=== PATIENT | female | born 1950 | race Caucasian/White ===

== ENCOUNTER 2023-05-28 05:36 | Day surgery (SDC) | payer OTHER ==
[2023-05-28 08:23] VITALS: BMI 26.6
[2023-05-28] MEDS ORDERED: MIDAZOLAM HCL 2 MG/2 ML SINGLE DOSE VIAL ONE (09:49)
[2023-05-28] MEDS ORDERED: ceFAZolin SODIUM 1 GM VIAL IVPB ONE (09:55)
[2023-05-28] MEDS ORDERED: LIDOCAINE HCL 1%, 10 MG/ML (20ML VIAL) INF ONE ×2 (10:03)
[2023-05-28] MEDS ORDERED: POVIDONE-IODINE OINTMENT 10% - 28.4 GM TUBE ONE (10:37)
[2023-05-28] MEDS ORDERED: POVIDONE-IODINE OINTMENT 10% - 28.4 GM TUBE TP ONE (11:20)
[2023-05-28 12:30] VITALS: RESP 20
[2023-05-28 13:07] VITALS: BP 153/78; PULSE 56; TEMP 96.8
== END 2023-05-28 14:21 | disposition home or self-care (01) ==
LOC: JASU-SURG 05:36
PROVIDERS: ATTEND Surgery Vascular Surgery
PROC: 03170ZD Bypass Right Brachial Artery to Upper Arm Vein, Open Approach (ICD-10-PCS; principal; 2023-05-28 09:30)
DX: I12.0 Hypertensive chronic kidney disease with stage 5 chronic kidney disease or end stage renal disease (principal); N18.6 End stage renal disease
CPT/HCPCS: 36415; 84132; 94760

== ENCOUNTER 2023-12-23 20:22 | Inpatient (IN) | payer OTHER ==
[2023-12-23 22:12] LABS: BASO % 0.3 % (0-2.0); HEMATOCRIT 38.3 % (32.4-45.2); HEMOGLOBIN 12.2 GM/dL (10.7-15.3); LYMPH % 1.9 % (8-40); MCH 29.2 pg (25.7-33.7); MCHC 31.9 g/dl (32.0-36.0); MEAN CELL VOLUME 91.4 fl (80-96); MEAN PLT VOLUME 8.3 fl (7.5-11.1); MONO % 4.8 % (3.8-10.2); PLATELET COUNT 329 10^3/uL (134-434); RBC 4.18 M/mm3 (3.60-5.2); RDW 16.1 % (11.6-15.6); WHITE BLOOD COUNT 25.8 K/mm3 (4.0-10.0)
[2023-12-23 22:21] LABS: INR 1.11 (0.83-1.09); PROTHROMBIN TIME (PATIENT) 12.9 SEC (9.7-13.0)
[2023-12-23 22:23] LABS: ACTIVATED PTT 32.2 SECONDS (25.2-36.5)
[2023-12-23 22:35] LABS: CHLORIDE 99 mmol/L (98-107); POTASSIUM 5.2 mmol/L (3.5-5.1); SODIUM 134 mmol/L (136-145)
[2023-12-23 22:37] LABS: ANION GAP 12 mmol/L (4-13); BLOOD UREA NITROGEN 74.2 mg/dL (7-18); CO2 23 mmol/L (21-32); GLUCOSE,RANDOM 170 mg/dL (74-106)
[2023-12-23 22:38] LABS: ALBUMIN 2.7 g/dl (3.4-5.0); MAGNESIUM 1.9 mg/dL (1.8-2.4)
[2023-12-23 22:41] LABS: SGOT/AST 32 U/L (15-37); SGPT/ALT 33 U/L (13-61)
[2023-12-23 22:42] LABS: BILIRUBIN,TOTAL 0.5 mg/dL (0.2-1); TOT PROT 7.4 g/dl (6.4-8.2)
[2023-12-23 22:43] LABS: ALK PHOS 124 U/L (45-117)
[2023-12-23 22:45] LABS: CREATININE 9.8 mg/dL (0.55-1.3)
[2023-12-23 22:48] LABS: ANISOCYTOSIS 1+; MACROCYTOSIS 0; TEAR DROP CELLS 1+
[2023-12-24 01:35] LABS: EPI CELLS 9 /uL (0-25.1); HYALINE CASTS 0 /uL (0-3.1); PH,URINE 5.5 (5.0-8.0); URINE APPEARANCE TURBID; URINE BACTERIA >9,000 /uL (0-1359); URINE BILIRUBIN NEGATIVE (NEGATIVE); URINE COLOR YELLOW; URINE GLUCOSE (UA) NEGATIVE (NEGATIVE); URINE KETONE TRACE (NEGATIVE); URINE LEUK ESTERASE 2+ (NEGATIVE); URINE NITRITE NEGATIVE (NEGATIVE); URINE PROTEIN 4+ (NEGATIVE); URINE RBC 33 /uL (0-23.9); URINE UROBILINOGEN 0.2 mg/dL (0.2-1.0); URINE WBC 2525 /uL (0-25.8)
[2023-12-24] MEDS ORDERED: CEFTRIAXONE 1 GM/50 ML BAG ONE ×2 (01:41→09:26)
[2023-12-24] MEDS: CEFTRIAXONE 1,000 MG in DEXTROSE 5%-WATER - 50 ML IVPB ONE (01:50)
[2023-12-24] MEDS ORDERED: LIDOCAINE 4% PATCH TP ONE (04:07)
[2023-12-24] MEDS ORDERED: INSULIN (NOVOLOG) ASPART 100 UNITS/ML 10ML VIAL ONE (08:27)
[2023-12-24 08:35] LABS: HEMATOCRIT 37.3 % (32.4-45.2); HEMOGLOBIN 12.1 GM/dL (10.7-15.3); MCH 29.5 pg (25.7-33.7); MCHC 32.5 g/dl (32.0-36.0); MEAN CELL VOLUME 90.8 fl (80-96); MEAN PLT VOLUME 8.5 fl (7.5-11.1); PLATELET COUNT 308 10^3/uL (134-434); WHITE BLOOD COUNT 23.4 K/mm3 (4.0-10.0)
[2023-12-24] MEDS: INSULIN ASPART SLIDING SCALE (NOVOLOG) 1 VIAL SQ SCH (08:48)
[2023-12-24 08:53] LABS: CHLORIDE 99 mmol/L (98-107); SODIUM 136 mmol/L (136-145)
[2023-12-24 08:55] LABS: ANION GAP 15 mmol/L (4-13); CALCIUM 9.2 mg/dL (8.5-10.1); CO2 21 mmol/L (21-32); GLUCOSE,RANDOM 180 mg/dL (74-106)
[2023-12-24 08:56] LABS: BLOOD UREA NITROGEN 81.5 mg/dL (7-18); MAGNESIUM 2.1 mg/dL (1.8-2.4)
[2023-12-24 08:59] LABS: PHOSPHOROUS 6.7 mg/dL (2.5-4.9)
[2023-12-24 09:08] LABS: ANISOCYTOSIS 0; MACROCYTOSIS 0
[2023-12-24 09:10] LABS: CREATININE 10.4 mg/dL (0.55-1.3)
[2023-12-24] MEDS ORDERED: ATENOLOL 25 MG TABLET (FP) ONE (09:25)
[2023-12-24] MEDS ORDERED: FUROSEMIDE 20 MG TABLET (FP) ONE (09:25)
[2023-12-24] MEDS ORDERED: ASPIRIN COATED 81 MG TABLET.EC ONE (09:25)
[2023-12-24] MEDS ORDERED: FAMOTIDINE 10 MG TABLET ONE (09:25)
[2023-12-24] MEDS: FAMOTIDINE 10 MG TABLET PO SCH (09:49)
[2023-12-24] MEDS: CALCITRIOL 0.25 MCG CAPSULE (FP) PO SCH (09:49)
[2023-12-24] MEDS: ATENOLOL 25 MG TABLET (FP) PO SCH (09:49)
[2023-12-24] MEDS: METHYL SALICYLATE/MENTHOL OINT 30 GM TUBE TP SCH (09:49)
[2023-12-24] MEDS: FUROSEMIDE 20 MG TABLET (FP) PO SCH (09:49)
[2023-12-24] MEDS: CEFTRIAXONE 1 GM in DEXTROSE 5%-WATER - 50 ML IVPB SCH (09:49)
[2023-12-24] MEDS: ASPIRIN COATED 81 MG TABLET.EC PO SCH (09:49)
[2023-12-24] MEDS: VITAMIN B COMPLEX W/C COMBO TABLET (FP) PO SCH (09:50)
[2023-12-24] MEDS: SERTRALINE HCL 25 MG TABLET (FP) PO SCH (09:50)
[2023-12-24] MEDS ORDERED: VANCOMYCIN PREMIX 1.5 GM 1,500 MG/300 ML BAG IVPB ONE (14:22)
[2023-12-24] MEDS: VANCOMYCIN PREMIX 1.5 GM 1,500 MG/300 ML BAG IVPB ONE (19:53)
[2023-12-24] MEDS ORDERED: LIDOCAINE PATCH REMOVAL MC SCH (22:00)
[2023-12-24] MEDS: ATORVASTATIN CA 40 MG TABLET (FP) PO SCH (22:45)
[2023-12-24] MEDS: GABAPENTIN 100 MG CAPSULE PO SCH (22:45)
[2023-12-24] MEDS: MELATONIN 1 MG TABLET PO SCH (22:45)
[2023-12-25 08:51] LABS: HEMATOCRIT 34.5 % (32.4-45.2); HEMOGLOBIN 11.1 GM/dL (10.7-15.3); MCH 29.2 pg (25.7-33.7); MCHC 32.2 g/dl (32.0-36.0); MEAN CELL VOLUME 90.6 fl (80-96); MEAN PLT VOLUME 8.7 fl (7.5-11.1); PLATELET COUNT 355 10^3/uL (134-434); WHITE BLOOD COUNT 22.5 K/mm3 (4.0-10.0)
[2023-12-25 09:01] LABS: CHLORIDE 100 mmol/L (98-107); SODIUM 135 mmol/L (136-145)
[2023-12-25 09:05] LABS: ALBUMIN 2.3 g/dl (3.4-5.0); ANION GAP 15 mmol/L (4-13); CALCIUM 8.7 mg/dL (8.5-10.1); CO2 21 mmol/L (21-32); GLUCOSE,RANDOM 137 mg/dL (74-106)
[2023-12-25 09:06] LABS: BLOOD UREA NITROGEN 90.3 mg/dL (7-18)
[2023-12-25 09:08] LABS: SGPT/ALT 28 U/L (13-61)
[2023-12-25 09:09] LABS: SGOT/AST 23 U/L (15-37)
[2023-12-25 09:10] LABS: BILIRUBIN,TOTAL 0.5 mg/dL (0.2-1); TOT PROT 6.5 g/dl (6.4-8.2)
[2023-12-25 09:11] LABS: ALK PHOS 110 U/L (45-117)
[2023-12-25 09:14] LABS: CREATININE 11.2 mg/dL (0.55-1.3)
[2023-12-25 09:48] LABS: ANISOCYTOSIS 0; MACROCYTOSIS 0
[2023-12-25] MEDS: ACETAMINOPHEN 325 MG TABLET (FP) PO PRN (14:53)
[2023-12-25] MEDS: LORazepam 1 MG TABLET PO SCH (15:52)
[2023-12-25] MEDS ORDERED: SODIUM CHLORIDE 250 ML IV PRN (16:21)
[2023-12-26 08:31] LABS: BASO % 0.4 % (0-2.0); EOS % 0.3 % (0-4.5); HEMATOCRIT 36.3 % (32.4-45.2); HEMOGLOBIN 11.7 GM/dL (10.7-15.3); LYMPH % 5.4 % (8-40); MCH 29.2 pg (25.7-33.7); MCHC 32.1 g/dl (32.0-36.0); MEAN CELL VOLUME 90.8 fl (80-96); MEAN PLT VOLUME 8.6 fl (7.5-11.1); MONO % 6.6 % (3.8-10.2); NEUT % 87.3 % (42.8-82.8); PLATELET COUNT 365 10^3/uL (134-434); RDW 16.2 % (11.6-15.6); WHITE BLOOD COUNT 17.7 K/mm3 (4.0-10.0)
[2023-12-26 08:50] LABS: CHLORIDE 99 mmol/L (98-107); POTASSIUM 4.3 mmol/L (3.5-5.1); SODIUM 136 mmol/L (136-145)
[2023-12-26 08:52] LABS: CALCIUM 8.5 mg/dL (8.5-10.1)
[2023-12-26 08:53] LABS: ALBUMIN 2.3 g/dl (3.4-5.0); ANION GAP 12 mmol/L (4-13); CO2 25 mmol/L (21-32); GLUCOSE,RANDOM 176 mg/dL (74-106)
[2023-12-26 08:56] LABS: SGPT/ALT 30 U/L (13-61)
[2023-12-26 08:57] LABS: SGOT/AST 25 U/L (15-37)
[2023-12-26 08:58] LABS: ALK PHOS 109 U/L (45-117); BILIRUBIN,TOTAL 0.6 mg/dL (0.2-1); TOT PROT 6.6 g/dl (6.4-8.2)
[2023-12-26 09:00] LABS: BLOOD UREA NITROGEN 54.5 mg/dL (7-18)
[2023-12-26] MEDS ORDERED: MEROPENEM 1 GM in DEXTROSE 5%-WATER 100 ML IVPB SCH (12:45)
[2023-12-26] MEDS: MEROPENEM 1 GM in DEXTROSE 5%-WATER 100 ML IVPB SCH (14:29)
[2023-12-26] MEDS ORDERED: INSULIN (NOVOLOG) ASPART 100 UNITS/ML 10ML VIAL ONE (21:20)
[2023-12-27 10:16] LABS: BASO % 0.6 % (0-2.0); EOS % 0.5 % (0-4.5); HEMATOCRIT 35.6 % (32.4-45.2); HEMOGLOBIN 11.7 GM/dL (10.7-15.3); LYMPH % 6.6 % (8-40); MCH 29.7 pg (25.7-33.7); MCHC 32.8 g/dl (32.0-36.0); MEAN CELL VOLUME 90.5 fl (80-96); MEAN PLT VOLUME 8.4 fl (7.5-11.1); MONO % 7.1 % (3.8-10.2); NEUT % 85.2 % (42.8-82.8); PLATELET COUNT 379 10^3/uL (134-434); RBC 3.94 M/mm3 (3.60-5.2); RDW 16.5 % (11.6-15.6); WHITE BLOOD COUNT 15.3 K/mm3 (4.0-10.0)
[2023-12-27 10:35] LABS: CHLORIDE 97 mmol/L (98-107); POTASSIUM 4.5 mmol/L (3.5-5.1); SODIUM 135 mmol/L (136-145)
[2023-12-27] MEDS: LIDOCAINE HCL 1%, 10 MG/ML (20ML VIAL) SQ ONE (10:37)
[2023-12-27 10:40] LABS: CALCIUM 9.1 mg/dL (8.5-10.1)
[2023-12-27 10:41] LABS: ALBUMIN 2.4 g/dl (3.4-5.0); ANION GAP 13 mmol/L (4-13); BLOOD UREA NITROGEN 67.7 mg/dL (7-18); CO2 26 mmol/L (21-32); GLUCOSE,RANDOM 146 mg/dL (74-106)
[2023-12-27 10:44] LABS: SGOT/AST 34 U/L (15-37); SGPT/ALT 40 U/L (13-61)
[2023-12-27 10:46] LABS: BILIRUBIN,TOTAL 0.8 mg/dL (0.2-1); TOT PROT 6.9 g/dl (6.4-8.2)
[2023-12-27 10:47] LABS: ALK PHOS 107 U/L (45-117)
[2023-12-27 10:49] LABS: CREATININE 9.4 mg/dL (0.55-1.3)
[2023-12-29] MEDS ORDERED: INSULIN (NOVOLOG) ASPART 100 UNITS/ML 10ML VIAL ONE (11:54)
[2023-12-29] MEDS: VANCOMYCIN 500 MG in DEXTROSE 5%-WATER 100 ML IVPB ONE (12:04)
[2023-12-29] MEDS ORDERED: SODIUM CHLORIDE 250 ML IV PRN (17:02)
[2023-12-30 10:13] LABS: BASO % 1.3 % (0-2.0); EOS % 3.5 % (0-4.5); HEMATOCRIT 33.1 % (32.4-45.2); HEMOGLOBIN 10.5 GM/dL (10.7-15.3); LYMPH % 11.1 % (8-40); MCH 28.9 pg (25.7-33.7); MCHC 31.8 g/dl (32.0-36.0); MEAN CELL VOLUME 90.8 fl (80-96); MEAN PLT VOLUME 8.3 fl (7.5-11.1); MONO % 7.4 % (3.8-10.2); NEUT % 76.7 % (42.8-82.8); PLATELET COUNT 380 10^3/uL (134-434); RBC 3.65 M/mm3 (3.60-5.2); RDW 16.3 % (11.6-15.6); WHITE BLOOD COUNT 11.6 K/mm3 (4.0-10.0)
[2023-12-30 10:38] LABS: POTASSIUM 3.7 mmol/L (3.5-5.1)
[2023-12-30 10:42] LABS: ALBUMIN 2.2 g/dl (3.4-5.0); BLOOD UREA NITROGEN 56.9 mg/dL (7-18); CALCIUM 8.1 mg/dL (8.5-10.1)
[2023-12-30 10:45] LABS: CREATININE 7.1 mg/dL (0.55-1.3)
[2023-12-30 10:46] LABS: TOT PROT 6.4 g/dl (6.4-8.2)
[2023-12-30 10:47] LABS: BILIRUBIN,TOTAL 0.5 mg/dL (0.2-1)
[2023-12-30] MEDS: ALBUMIN HUMAN 25% 12.5 GM/50 ML VIAL IV SCH (11:00)
[2023-12-31] MEDS ORDERED: SODIUM CHLORIDE 250 ML IV PRN (12:00)
[2023-12-31] MEDS: LORazepam 1 MG TABLET PO SCH (13:25)
[2023-12-31] MEDS: EPOETIN ALFA-EPBX 4,000 UNIT/ML VIAL SQ ONE (15:01)
[2023-12-31] MEDS: VANCOMYCIN/WATER FOR INJ (PEG) 1,000 MG/200 ML BAG IVPB SCH (19:24)
[2024-01-01] MEDS ORDERED: SODIUM CHLORIDE 250 ML IV PRN (08:03)
[2024-01-01] MEDS: EPOETIN ALFA-EPBX 2,000 UNIT/ML VIAL IVPUSH ONE (15:15)
[2024-01-02 10:17] LABS: BASO % 1.4 % (0-2.0); EOS % 3.3 % (0-4.5); HEMATOCRIT 31.1 % (32.4-45.2); HEMOGLOBIN 9.7 GM/dL (10.7-15.3); LYMPH % 13.3 % (8-40); MCH 28.7 pg (25.7-33.7); MCHC 31.2 g/dl (32.0-36.0); MEAN CELL VOLUME 91.9 fl (80-96); MEAN PLT VOLUME 8.5 fl (7.5-11.1); MONO % 9.8 % (3.8-10.2); NEUT % 72.2 % (42.8-82.8); PLATELET COUNT 305 10^3/uL (134-434); RBC 3.39 M/mm3 (3.60-5.2); RDW 15.8 % (11.6-15.6); WHITE BLOOD COUNT 9.5 K/mm3 (4.0-10.0)
[2024-01-02 10:45] LABS: POTASSIUM 4.7 mmol/L (3.5-5.1)
[2024-01-02 10:47] LABS: CALCIUM 9.2 mg/dL (8.5-10.1)
[2024-01-02 10:48] LABS: ALBUMIN 2.2 g/dl (3.4-5.0); BLOOD UREA NITROGEN 37.4 mg/dL (7-18)
[2024-01-02 10:52] LABS: BILIRUBIN,TOTAL 0.6 mg/dL (0.2-1)
[2024-01-02 10:53] LABS: TOT PROT 6.6 g/dl (6.4-8.2)
[2024-01-02] MEDS ORDERED: INSULIN (NOVOLOG) ASPART 100 UNITS/ML 10ML VIAL ONE (21:15)
[2024-01-02] MEDS: MEROPENEM 1 GM in DEXTROSE 5%-WATER 100 ML IVPB SCH (21:34)
[2024-01-03] MEDS: VANCOMYCIN/WATER FOR INJ (PEG) 1,000 MG/200 ML BAG IVPB ONE (19:00)
[2024-01-03] MEDS ORDERED: INSULIN (NOVOLOG) ASPART 100 UNITS/ML 10ML VIAL ONE (21:33)
[2024-01-04] MEDS ORDERED: EPOETIN ALFA-EPBX 3,000 UNIT/ML VIAL IVPUSH ONE (08:19)
[2024-01-04] MEDS ORDERED: SODIUM CHLORIDE 250 ML IV PRN (08:19)
[2024-01-04] MEDS ORDERED: HEPARIN NA (PORCINE) 5,000 UNITS/ML 1ML VIAL ONE ×2 (14:50→15:54)
[2024-01-04] MEDS ORDERED: LIDOCAINE HCL 1%, 10 MG/ML (20ML VIAL) ONE ×2 (14:50→15:54)
[2024-01-05] MEDS: VANCOMYCIN 1,000 MG in DEXTROSE 5%-WATER - 250 ML IVPB ONE (08:42)
[2024-01-05] MEDS ORDERED: SODIUM CHLORIDE 250 ML IV PRN (16:18)
[2024-01-06 11:31] VITALS: BMI 21.9
[2024-01-06 11:37] LABS: INR 1.12 (0.83-1.09)
[2024-01-06 11:40] LABS: ACTIVATED PTT 40.9 SECONDS (25.2-36.5)
[2024-01-06] MEDS ORDERED: LIDOCAINE HCL 1%, 10 MG/ML (20ML VIAL) ONE (12:05)
[2024-01-06] MEDS ORDERED: HEPARIN NA (PORCINE) 5,000 UNITS/ML 1ML VIAL ONE (12:05)
[2024-01-06] MEDS ORDERED: INSULIN (NOVOLOG) ASPART 100 UNITS/ML 10ML VIAL ONE (21:13)
[2024-01-07] MEDS ORDERED: LIDOCAINE HCL 1%, 10 MG/ML (20ML VIAL) ONE (07:07)
[2024-01-07] MEDS ORDERED: HEPARIN NA (PORCINE) 5,000 UNITS/ML 1ML VIAL ONE (07:08)
[2024-01-07] MEDS ORDERED: PROPOFOL 20 ML ONE (07:29)
[2024-01-07] MEDS ORDERED: MIDAZOLAM HCL 2 MG/2 ML SINGLE DOSE VIAL ONE (07:54)
[2024-01-07] MEDS: ceFAZolin SODIUM 1 GM VIAL IVPB ONE (08:00)
[2024-01-07] MEDS: HEPARIN NA (PORCINE) 5,000 UNITS/ML 1ML VIAL SQ ONE (08:03)
[2024-01-07] MEDS: LIDOCAINE 1% P/F 10 MG/ML VIAL INF ONE ×2 (08:09)
[2024-01-07] MEDS ORDERED: ONDANSETRON 4 MG/2 ML VIAL IVPUSH PRN (08:30)
[2024-01-07] MEDS ORDERED: ACETAMINOPHEN 325 MG TABLET (FP) PO PRN (08:46)
[2024-01-07] MEDS: EPOETIN ALFA-EPBX 3,000 UNIT/ML VIAL SQ ONE ×2 (10:21→15:28)
[2024-01-07] MEDS: SERTRALINE HCL 25 MG TABLET (FP) PO SCH (10:25)
[2024-01-07] MEDS: CALCITRIOL 0.25 MCG CAPSULE (FP) PO SCH (10:25)
[2024-01-07] MEDS: VITAMIN B COMPLEX W/C COMBO TABLET (FP) PO SCH (10:25)
[2024-01-07] MEDS: FAMOTIDINE 10 MG TABLET PO SCH (10:25)
[2024-01-07] MEDS: FUROSEMIDE 20 MG TABLET (FP) PO SCH (10:25)
[2024-01-07] MEDS: ASPIRIN COATED 81 MG TABLET.EC PO SCH (10:25)
[2024-01-07] MEDS: ATENOLOL 25 MG TABLET (FP) PO SCH (10:25)
[2024-01-07] MEDS: LORazepam 1 MG TABLET PO SCH (10:31)
[2024-01-07] MEDS: LACTATED RINGERS SOLUTION 1,000 ML IV SCH (10:32)
[2024-01-07] MEDS: METHYL SALICYLATE/MENTHOL OINT 30 GM TUBE TP SCH (10:34)
[2024-01-07] MEDS: INSULIN ASPART SLIDING SCALE (NOVOLOG) 1 VIAL SQ SCH (10:58)
[2024-01-07] MEDS ORDERED: SODIUM CHLORIDE 250 ML IV PRN (13:32)
[2024-01-07] MEDS: ERTAPENEM SODIUM 1 GM in SODIUM CHLORIDE 50 ML IVPB ONE (18:29)
[2024-01-07] MEDS: MELATONIN 1 MG TABLET PO SCH (21:48)
[2024-01-07] MEDS: ATORVASTATIN CA 40 MG TABLET (FP) PO SCH (21:48)
[2024-01-07] MEDS: GABAPENTIN 100 MG CAPSULE PO SCH (21:48)
[2024-01-09 08:23] LABS: BASO % 3.2 % (0-2.0); EOS % 7.8 % (0-4.5); HEMATOCRIT 27.2 % (32.4-45.2); HEMOGLOBIN 8.7 GM/dL (10.7-15.3); LYMPH % 24.1 % (8-40); MCH 28.9 pg (25.7-33.7); MCHC 31.9 g/dl (32.0-36.0); MEAN CELL VOLUME 90.7 fl (80-96); MONO % 11.9 % (3.8-10.2); PLATELET COUNT 330 10^3/uL (134-434); RDW 16.4 % (11.6-15.6); WHITE BLOOD COUNT 5.9 K/mm3 (4.0-10.0)
[2024-01-09 14:53] VITALS: RESP 18
[2024-01-09] MEDS ORDERED: INSULIN (NOVOLOG) ASPART 100 UNITS/ML 10ML VIAL ONE (18:19)
[2024-01-10] MEDS ORDERED: EPOETIN ALFA-EPBX 3,000 UNIT/ML VIAL IVPUSH ONE (06:00)
[2024-01-10 12:43] VITALS: BP 136/79; PULSE 60; TEMP 98.2
== END 2024-01-10 17:26 | DRG 314 ==
LOC: JER 20:22 → JERBED 12-24 03:10 → OBSVTOIN 12-24 13:56 → JERBED 12-24 15:05 → J7W 12-24 15:10
PROVIDERS: ADMIT Internal Medicine; ATTEND Family Medicine
PROC: 5A1D70Z Performance of Urinary Filtration, Intermittent, Less than 6 Hours Per Day (ICD-10-PCS; 2023-12-25)
PROC: 0WP8XYZ Removal of Other Device from Chest Wall, External Approach (ICD-10-PCS; principal; 2023-12-27)
PROC: 06HM33Z Insertion of Infusion Device into Right Femoral Vein, Percutaneous Approach (ICD-10-PCS; 2023-12-29)
PROC: B54BZZA Ultrasonography of Right Lower Extremity Veins, Guidance (ICD-10-PCS; 2023-12-29)
PROC: 5A1D70Z Performance of Urinary Filtration, Intermittent, Less than 6 Hours Per Day (ICD-10-PCS; 2023-12-30)
PROC: 5A1D70Z Performance of Urinary Filtration, Intermittent, Less than 6 Hours Per Day (ICD-10-PCS; 2023-12-31)
PROC: 5A1D70Z Performance of Urinary Filtration, Intermittent, Less than 6 Hours Per Day (ICD-10-PCS; 2024-01-01)
PROC: 05HM33Z Insertion of Infusion Device into Right Internal Jugular Vein, Percutaneous Approach (ICD-10-PCS; 2024-01-07)
PROC: B543ZZA Ultrasonography of Right Jugular Veins, Guidance (ICD-10-PCS; 2024-01-07)
DX: T80.211A Bloodstream infection due to central venous catheter, initial encounter (principal); A41.02 Sepsis due to Methicillin resistant Staphylococcus aureus; N18.6 End stage renal disease; I12.0 Hypertensive chronic kidney disease with stage 5 chronic kidney disease or end stage renal disease; N39.0 Urinary tract infection, site not specified; I31.39 Other pericardial effusion (noninflammatory); E11.22 Type 2 diabetes mellitus with diabetic chronic kidney disease; F41.8 Other specified anxiety disorders; E11.51 Type 2 diabetes mellitus with diabetic peripheral angiopathy without gangrene; F03.90 Unspecified dementia, unspecified severity, without behavioral disturbance, psychotic disturbance, mood disturbance, and anxiety; D72.829 Elevated white blood cell count, unspecified; Y83.8 Other surgical procedures as the cause of abnormal reaction of the patient, or of later complication, without mention of misadventure at the time of the procedure; B95.62 Methicillin resistant Staphylococcus aureus infection as the cause of diseases classified elsewhere; B96.20 Unspecified Escherichia coli [E. coli] as the cause of diseases classified elsewhere; Z99.2 Dependence on renal dialysis
CPT/HCPCS: 36415; 70450-TC; 71045-TC-FY; 73030-TC-LT-FY; 73030-TC-RT-FY; 76000-TC-FY; 80048; 80053; 81003; 82962; 83605; 83735; 84100; 84484; 85025; 85610; 85730; 86704; 86803; 86850; 86900; 86901; 87040; 87070; 87077; 87086; 87186; 87340; 87517; 93005; 93010; 93306-TC; 93990-TC; 94760; 99285-25; C1750; G0378; G0480; J1644; P9047; Q5106

== ENCOUNTER 2024-01-28 23:13 | Emergency (ER) | payer OTHER ==
[2024-01-28 23:32] VITALS: BMI 24.0
[2024-01-29 01:16] LABS: BASO % 1.5 % (0-2.0); EOS % 4.7 % (0-4.5); HEMATOCRIT 30.4 % (32.4-45.2); LYMPH % 19.9 % (8-40); MCH 29.5 pg (25.7-33.7); MEAN CELL VOLUME 89.2 fl (80-96); MEAN PLT VOLUME 8.2 fl (7.5-11.1); MONO % 7.5 % (3.8-10.2); NEUT % 66.4 % (42.8-82.8); PLATELET COUNT 264 10^3/uL (134-434); RBC 3.41 M/mm3 (3.60-5.2); RDW 16.5 % (11.6-15.6); WHITE BLOOD COUNT 6.6 K/mm3 (4.0-10.0)
[2024-01-29 01:52] LABS: POTASSIUM 3.4 mmol/L (3.5-5.1)
[2024-01-29 01:55] LABS: ALBUMIN 3.2 g/dl (3.4-5.0); MAGNESIUM 1.8 mg/dL (1.8-2.4)
[2024-01-29 01:57] LABS: CREATININE 2.8 mg/dL (0.55-1.3); PHOSPHOROUS 2.2 mg/dL (2.5-4.9)
[2024-01-29 01:59] LABS: TOT PROT 8.8 g/dl (6.4-8.2)
[2024-01-29 02:04] LABS: BLOOD UREA NITROGEN 11.4 mg/dL (7-18)
[2024-01-29 02:11] LABS: BILIRUBIN,TOTAL 0.4 mg/dL (0.2-1)
[2024-01-29 07:20] VITALS: BP 156/81; PULSE 63; RESP 18; TEMP 98.4
== END 2024-01-29 09:00 ==
LOC: JER 23:13
DX: R42 Dizziness and giddiness (principal); I12.0 Hypertensive chronic kidney disease with stage 5 chronic kidney disease or end stage renal disease; N18.6 End stage renal disease; Z99.2 Dependence on renal dialysis
CPT/HCPCS: 36415; 71045-TC-FY; 80053; 83735; 84100; 84484; 85025; 93005; 93010; 99285-25

== ENCOUNTER 2024-02-01 15:41 | Emergency (ER) | payer OTHER ==
[2024-02-01 15:58] VITALS: TEMP 98.4; BMI 24.2
[2024-02-01 16:31] LABS: EOS % 8.9 % (0-4.5); HEMATOCRIT 27.3 % (32.4-45.2); HEMOGLOBIN 8.7 GM/dL (10.7-15.3); LYMPH % 18.6 % (8-40); MCH 28.9 pg (25.7-33.7); MCHC 31.8 g/dl (32.0-36.0); MEAN CELL VOLUME 90.8 fl (80-96); MEAN PLT VOLUME 8.5 fl (7.5-11.1); MONO % 8.7 % (3.8-10.2); NEUT % 61.8 % (42.8-82.8); PLATELET COUNT 230 10^3/uL (134-434); RDW 18.2 % (11.6-15.6); WHITE BLOOD COUNT 5.3 K/mm3 (4.0-10.0)
[2024-02-01 16:39] LABS: INR 1.06 (0.83-1.09); PROTHROMBIN TIME (PATIENT) 12.3 SEC (9.7-13.0)
[2024-02-01 16:42] LABS: ACTIVATED PTT 38.2 SECONDS (25.2-36.5)
[2024-02-01 16:57] LABS: CHLORIDE 107 mmol/L (98-107); SODIUM 140 mmol/L (136-145)
[2024-02-01 16:59] LABS: CALCIUM 8.6 mg/dL (8.5-10.1)
[2024-02-01 17:00] LABS: ALBUMIN 2.6 g/dl (3.4-5.0); ANION GAP 7 mmol/L (4-13); CO2 26 mmol/L (21-32); GLUCOSE,RANDOM 97 mg/dL (74-106)
[2024-02-01 17:03] LABS: SGOT/AST 23 U/L (15-37); SGPT/ALT 20 U/L (13-61)
[2024-02-01 17:04] LABS: BILIRUBIN,TOTAL 0.3 mg/dL (0.2-1)
[2024-02-01 17:06] LABS: ALK PHOS 159 U/L (45-117)
[2024-02-01 17:12] LABS: BLOOD UREA NITROGEN 60.4 mg/dL (7-18); CREATININE 8.2 mg/dL (0.55-1.3); TOT PROT 6.7 g/dl (6.4-8.2)
[2024-02-01 19:23] VITALS: BP 148/86; PULSE 62; RESP 18
== END 2024-02-02 00:11 | disposition home or self-care (01) ==
LOC: JER 15:41
DX: D64.9 Anemia, unspecified (principal); R79.9 Abnormal finding of blood chemistry, unspecified; R53.1 Weakness
CPT/HCPCS: 36415; 80053; 82272; 85025; 85610; 85730; 86850; 86900; 86901; 93005; 93010; 99284-25

== ENCOUNTER 2024-02-29 20:20 | Observation (INO) | payer OTHER ==
[2024-02-29] MEDS ORDERED: ACETAMINOPHEN 500 MG TABLET (FP) ONE (21:28)
[2024-02-29] MEDS: ACETAMINOPHEN 500 MG TABLET (FP) PO ONE (21:42)
[2024-02-29 21:46] LABS: VENOUS BASE EXCESS 0.3 mmol/L (-2-2); VENOUS O2 SATURATION 45.1 % (70-80); VENOUS PCO2 46.5 mmHg (38-52); VENOUS PH 7.366 (7.310-7.410)
[2024-02-29 22:02] LABS: BASO % 2.9 % (0-2.0); EOS % 7.7 % (0-4.5); HEMATOCRIT 38.2 % (32.4-45.2); HEMOGLOBIN 12.4 GM/dL (10.7-15.3); LYMPH % 20.9 % (8-40); MCH 29.9 pg (25.7-33.7); MCHC 32.5 g/dl (32.0-36.0); MEAN CELL VOLUME 91.9 fl (80-96); MEAN PLT VOLUME 8.7 fl (7.5-11.1); MONO % 7.4 % (3.8-10.2); NEUT % 61.1 % (42.8-82.8); PLATELET COUNT 180 10^3/uL (134-434); RBC 4.15 M/mm3 (3.60-5.2); RDW 19.5 % (11.6-15.6); WHITE BLOOD COUNT 4.8 K/mm3 (4.0-10.0)
[2024-02-29 22:10] LABS: PROTHROMBIN TIME (PATIENT) 11.6 SEC (9.7-13.0)
[2024-02-29] MEDS ORDERED: ACETAMINOPHEN 325 MG TABLET (FP) PO PRN (22:12)
[2024-02-29 22:13] LABS: ACTIVATED PTT 35.9 SECONDS (25.2-36.5)
[2024-02-29 22:21] LABS: POTASSIUM 3.6 mmol/L (3.5-5.1)
[2024-02-29 22:23] LABS: CALCIUM 9.3 mg/dL (8.5-10.1)
[2024-02-29 22:24] LABS: ALBUMIN 3.4 g/dl (3.4-5.0); BLOOD UREA NITROGEN 21.8 mg/dL (7-18)
[2024-02-29 22:27] LABS: CREATININE 4.1 mg/dL (0.55-1.3); PHOSPHOROUS 2.8 mg/dL (2.5-4.9)
[2024-02-29 22:28] LABS: BILIRUBIN,TOTAL 0.4 mg/dL (0.2-1); TOT PROT 7.9 g/dl (6.4-8.2)
[2024-03-01 06:05] VITALS: BMI 20.2
[2024-03-01] MEDS: INSULIN ASPART SLIDING SCALE (NOVOLOG) 1 VIAL SQ SCH (06:19)
[2024-03-01] MEDS ORDERED: SERTRALINE HCL 50 MG TABLET (FP) PO SCH (10:00)
[2024-03-01] MEDS ORDERED: ATENOLOL 25 MG TABLET (FP) PO SCH (10:00)
[2024-03-01] MEDS ORDERED: LIDOCAINE 1%/EPI 1:100000 (20 ML MULTI DOSE VIAL) ONE (10:24)
[2024-03-01] MEDS: VITAMIN B COMP W-C 1 EA TABLET (NEPHRO-VITE) PO SCH (11:24)
[2024-03-01] MEDS: SERTRALINE HCL 50 MG, SERTRALINE HCL 25 MG PO SCH (11:24)
[2024-03-01] MEDS: FUROSEMIDE 20 MG TABLET (FP) PO SCH (11:25)
[2024-03-01] MEDS: CALCITRIOL 0.25 MCG CAPSULE (FP) PO SCH (11:25)
[2024-03-01] MEDS: METHYL SALICYLATE/MENTHOL OINT 30 GM TUBE TP SCH (11:31)
[2024-03-01] MEDS: LORazepam 1 MG TABLET PO SCH (12:42)
[2024-03-01 12:46] LABS: EOS % 7.2 % (0-4.5); HEMATOCRIT 37.8 % (32.4-45.2); LYMPH % 26.8 % (8-40); MCH 29.3 pg (25.7-33.7); MCHC 31.7 g/dl (32.0-36.0); MEAN CELL VOLUME 92.5 fl (80-96); MEAN PLT VOLUME 9.1 fl (7.5-11.1); MONO % 7.8 % (3.8-10.2); NEUT % 55.2 % (42.8-82.8); PLATELET COUNT 192 10^3/uL (134-434); RBC 4.08 M/mm3 (3.60-5.2); RDW 19.1 % (11.6-15.6); WHITE BLOOD COUNT 4.8 K/mm3 (4.0-10.0)
[2024-03-01 14:13] VITALS: BP 113/59; PULSE 61; RESP 18; TEMP 98.6
[2024-03-01 14:19] LABS: BLOOD UREA NITROGEN 30.6 mg/dL (7-18); CALCIUM 9.3 mg/dL (8.5-10.1); POTASSIUM 3.8 mmol/L (3.5-5.1)
[2024-03-01 14:23] LABS: CREATININE 5.3 mg/dL (0.55-1.3)
[2024-03-01] MEDS ORDERED: ATORVASTATIN CA 40 MG TABLET (FP) PO SCH (22:00)
[2024-03-01] MEDS ORDERED: MELATONIN 1 MG TABLET PO SCH (22:00)
== END 2024-03-01 17:53 ==
LOC: JER 20:20 → JERBED 21:51 → J8W 03-01 02:35
PROVIDERS: ADMIT Internal Medicine; ATTEND Internal Medicine
PROC: 0J2TXYZ Change Other Device in Trunk Subcutaneous Tissue and Fascia, External Approach (ICD-10-PCS; principal; 2024-02-29)
DX: Z49.02 Encounter for fitting and adjustment of peritoneal dialysis catheter (principal); F03.90 Unspecified dementia, unspecified severity, without behavioral disturbance, psychotic disturbance, mood disturbance, and anxiety; F41.8 Other specified anxiety disorders; E78.5 Hyperlipidemia, unspecified; I73.9 Peripheral vascular disease, unspecified; E11.9 Type 2 diabetes mellitus without complications; N18.6 End stage renal disease
CPT/HCPCS: 36415; 36558; 71045-TC-FY; 80048; 80053; 82803; 82962; 83735; 84100; 85025; 85610; 85730; 86850; 86900; 86901; 93005; 93010; 99285-25; G0378

== ENCOUNTER 2024-04-24 01:10 | Inpatient (IN) | payer OTHER ==
[2024-04-24] MEDS ORDERED: PIPERACILLIN/TAZOB 3.375 GM 3.375 GM/50 ML BAG IVPB ONE (01:25)
[2024-04-24] MEDS ORDERED: VANCOMYCIN 1 GRAM (PRE-DOCKED) 1,000 MG/250 ML BAG IVPB ONE (01:25)
[2024-04-24] MEDS: SODIUM CHLORIDE 0.9% 1000 ML INFUS.BAG IV STA (01:43)
[2024-04-24 02:01] LABS: HEMATOCRIT 42.5 % (32.4-45.2); HEMOGLOBIN 13.9 GM/dL (10.7-15.3); MCH 30.4 pg (25.7-33.7); MCHC 32.7 g/dl (32.0-36.0); MEAN PLT VOLUME 11.1 fl (7.5-11.1); PLATELET COUNT 120 10^3/uL (134-434); RBC 4.57 M/mm3 (3.60-5.2); RDW 16.7 % (11.6-15.6); WHITE BLOOD COUNT 9.8 K/mm3 (4.0-10.0)
[2024-04-24 02:07] LABS: INR 0.93 (0.83-1.09); PROTHROMBIN TIME (PATIENT) 10.5 SEC (9.7-13.0)
[2024-04-24 02:09] LABS: ACTIVATED PTT 33.1 SECONDS (25.2-36.5)
[2024-04-24] MEDS ORDERED: DEXTROSE 50%-WATER 25 GM/50 ML DISP.SYRIN ONE ×2 (02:11→02:13)
[2024-04-24] MEDS ORDERED: CALCIUM GLUCONATE 10% - 1,000 MG/10 ML VIAL ONE (02:12)
[2024-04-24] MEDS ORDERED: CALCIUM GLUC IN NACL, ISO-OSM 1 GM/50 ML BAG IVPB ONE (02:12)
[2024-04-24] MEDS ORDERED: INSULIN REGULAR HUMAN 100 UNITS/ML *VIAL ONE (02:12)
[2024-04-24] MEDS ORDERED: ALBUTEROL SO4 0.083% IH SOL 2.5 MG/3 ML VIAL.NEB. NEB ONE (02:12)
[2024-04-24 02:21] LABS: CHLORIDE 103 mmol/L (98-107); POTASSIUM 5.2 mmol/L (3.5-5.1); SODIUM 143 mmol/L (136-145)
[2024-04-24 02:23] LABS: ALBUMIN 2.8 g/dl (3.4-5.0); ANION GAP 18 mmol/L (4-13); CALCIUM 7.8 mg/dL (8.5-10.1); CO2 21 mmol/L (21-32); GLUCOSE,RANDOM 201 mg/dL (74-106)
[2024-04-24 02:26] LABS: SGOT/AST 53 U/L (15-37); SGPT/ALT 67 U/L (13-61)
[2024-04-24 02:28] LABS: BILIRUBIN,TOTAL 0.8 mg/dL (0.2-1); TOT PROT 7.4 g/dl (6.4-8.2)
[2024-04-24 02:29] LABS: ALK PHOS 100 U/L (45-117)
[2024-04-24] MEDS: INSULIN REGULAR HUMAN 100 UNITS/ML *VIAL IVPUSH ONE (02:30)
[2024-04-24] MEDS: ALBUTEROL SO4 0.083% IH SOL 2.5 MG/3 ML VIAL.NEB. NEB ONE (02:41)
[2024-04-24] MEDS: DEXTROSE 50%-WATER - 25 GM/50 ML VIAL IVPUSH ONE (02:41)
[2024-04-24] MEDS: CALCIUM GLUCONATE 10% - 1,000 MG/10 ML VIAL IVPB ONE (02:41)
[2024-04-24 02:48] LABS: EPI CELLS >36 /uL (0-25.1); HYALINE CASTS 1 /uL (0-3.1); PH,URINE 6.5 (5.0-8.0); URINE APPEARANCE CLEAR; URINE BACTERIA 85 /uL (0-1359); URINE BILIRUBIN NEGATIVE (NEGATIVE); URINE COLOR YELLOW; URINE GLUCOSE (UA) 1+ (NEGATIVE); URINE KETONE NEGATIVE (NEGATIVE); URINE LEUK ESTERASE 1+ (NEGATIVE); URINE NITRITE NEGATIVE (NEGATIVE); URINE PROTEIN 4+ (NEGATIVE); URINE RBC 231 /uL (0-23.9); URINE UROBILINOGEN 0.2 mg/dL (0.2-1.0); URINE WBC 229 /uL (0-25.8)
[2024-04-24 02:48] LABS: VENOUS O2 SATURATION 18.8 % (70-80); VENOUS PCO2 47.3 mmHg (38-52); VENOUS PH 7.233 (7.310-7.410)
[2024-04-24 02:52] LABS: BLOOD UREA NITROGEN 143.7 mg/dL (7-18); CREATININE 13.6 mg/dL (0.55-1.3)
[2024-04-24 02:55] LABS: ANISOCYTOSIS 1+; MACROCYTOSIS 0; OVALOCYTE 1+
[2024-04-24 03:00] LABS: PLATELET ESTIMATE DECREASED
[2024-04-24] MEDS: PIPERACILLIN/TAZOB 3.375 GM 3.375 GM in DEXTROSE 5%-WATER - 50 ML IVPB ONE (03:03)
[2024-04-24 03:17] LABS: LACTIC ACID 3.4 mmol/L (0.4-2.0)
[2024-04-24] MEDS: VANCOMYCIN 1 GM PREMIX - 1 GM/200 ML BAG IVPB ONE (03:30)
[2024-04-24 04:29] LABS: CHLORIDE 105 mmol/L (98-107); POTASSIUM 4.7 mmol/L (3.5-5.1); SODIUM 141 mmol/L (136-145)
[2024-04-24 04:30] LABS: CALCIUM 7.4 mg/dL (8.5-10.1)
[2024-04-24 04:31] LABS: ANION GAP 19 mmol/L (4-13); CO2 17 mmol/L (21-32); GLUCOSE,RANDOM 287 mg/dL (74-106)
[2024-04-24 04:49] LABS: CREATININE 13.3 mg/dL (0.55-1.3)
[2024-04-24 04:52] LABS: LACTIC ACID 3.6 mmol/L (0.4-2.0)
[2024-04-24] MEDS: SODIUM CHLORIDE 1,000 ML IV SCH (06:41)
[2024-04-24] MEDS ORDERED: MEROPENEM 1 GM VIAL (RESTRICTED TO ID) IVPB ONE (06:45)
[2024-04-24] MEDS: HEPARIN NA (PORCINE) 5,000 UNITS/ML 1ML VIAL SQ SCH (06:58)
[2024-04-24] MEDS: MEROPENEM 1 GM in DEXTROSE 5%-WATER 100 ML IVPB ONE (06:58)
[2024-04-24] MEDS ORDERED: ACETAMINOPHEN 325 MG TABLET (FP) PO PRN (07:06)
[2024-04-24] MEDS ORDERED: MAGNESIUM HYDROX 2400MG/30ML ORAL SUSPENSION 30 ML CUP PO PRN (07:06)
[2024-04-24 08:53] LABS: N-TERMINAL BNP > 35000.0 pg/ml (5-125)
[2024-04-24] MEDS ORDERED: ASPIRIN COATED 81 MG TABLET.EC PO SCH (10:00)
[2024-04-24] MEDS ORDERED: SODIUM CHLORIDE 250 ML IV PRN (10:11)
[2024-04-24 10:14] LABS: HEMOGLOBIN 12.8 GM/dL (10.7-15.3); MCH 29.6 pg (25.7-33.7); MCHC 29.7 g/dl (32.0-36.0); MEAN CELL VOLUME 99.8 fl (80-96); PLATELET COUNT 94 10^3/uL (134-434); RBC 4.31 M/mm3 (3.60-5.2); RDW 17.6 % (11.6-15.6); WHITE BLOOD COUNT 4.9 K/mm3 (4.0-10.0)
[2024-04-24] MEDS ORDERED: SERTRALINE HCL 50 MG TABLET (FP) ONE (10:21)
[2024-04-24 11:06] LABS: LACTIC ACID 3.7 mmol/L (0.4-2.0)
[2024-04-24] MEDS: METHYL SALICYLATE/MENTHOL OINT 30 GM TUBE TP SCH (11:15)
[2024-04-24 12:35] LABS: CHLORIDE 108 mmol/L (98-107); SODIUM 143 mmol/L (136-145)
[2024-04-24 12:36] LABS: CALCIUM 7.8 mg/dL (8.5-10.1)
[2024-04-24 12:37] LABS: ANION GAP 24 mmol/L (4-13); CO2 11 mmol/L (21-32); GLUCOSE,RANDOM 342 mg/dL (74-106); MAGNESIUM 2.4 mg/dL (1.8-2.4)
[2024-04-24 12:40] LABS: PHOSPHOROUS 6.8 mg/dL (2.5-4.9)
[2024-04-24 12:55] LABS: BLOOD UREA NITROGEN > 150.0 mg/dL (7-18); CREATININE 13.8 mg/dL (0.55-1.3); N-TERMINAL BNP > 175000.0 pg/ml (5-125)
[2024-04-24] MEDS: LORazepam 1 MG TABLET PO SCH ×2 (13:05→19:54)
[2024-04-24] MEDS ORDERED: INSULIN ASPART SLIDING SCALE (NOVOLOG) 1 VIAL SQ ONE (13:45)
[2024-04-24] MEDS: INSULIN ASPART SLIDING SCALE (NOVOLOG) 1 VIAL SQ SCH (13:46)
[2024-04-24] MEDS ORDERED: MEROPENEM 1 GM in DEXTROSE 5%-WATER 100 ML IVPB SCH (14:00)
[2024-04-24] MEDS ORDERED: HEPARIN NA (PORCINE) 5,000 UNITS/ML 1ML VIAL ONE (14:48)
[2024-04-24] MEDS ORDERED: NOREPINEPHRINE BITARTRATE 4 MG/4 ML ML IV ONE (16:32)
[2024-04-24] MEDS: NOREPINEPHRINE BITARTRATE 4,000 MCG in SODIUM CHLORIDE 496 ML IV SCH (16:45)
[2024-04-24] MEDS: MIDODRINE HCL 5 MG TABLET PO SCH (18:00)
[2024-04-24] MEDS: CALCITRIOL 0.25 MCG CAPSULE (FP) PO SCH (19:53)
[2024-04-24] MEDS: VITAMIN B COMP W-C 1 EA TABLET (NEPHRO-VITE) PO SCH (19:53)
[2024-04-24] MEDS: SERTRALINE HCL 50 MG TABLET (FP) PO SCH (19:54)
[2024-04-24] MEDS: GABAPENTIN 100 MG CAPSULE PO SCH (19:55)
[2024-04-24] MEDS: MELATONIN 1 MG TABLET PO SCH (21:39)
[2024-04-24] MEDS: ATORVASTATIN CA 40 MG TABLET (FP) PO SCH (21:39)
[2024-04-25 00:50] LABS: ARTERIAL BLD GAS O2 SATURATION 96.2 % (95-98); ARTERIAL BLOOD GAS BASE EXCESS -4.3 mmol/L (-2-2); ARTERIAL BLOOD GAS PO2 80.6 mmHg (80-100); ARTERIAL BLOOD GAS pH 7.413 (7.350-7.450)
[2024-04-25 01:28] LABS: CHLORIDE 106 mmol/L (98-107); POTASSIUM 4.6 mmol/L (3.5-5.1); SODIUM 142 mmol/L (136-145)
[2024-04-25 01:30] LABS: CALCIUM 7.7 mg/dL (8.5-10.1); LACTIC ACID 2.1 mmol/L (0.4-2.0)
[2024-04-25 01:31] LABS: ANION GAP 13 mmol/L (4-13); CO2 22 mmol/L (21-32); GLUCOSE,RANDOM 195 mg/dL (74-106)
[2024-04-25 01:34] LABS: SGOT/AST 151 U/L (15-37); SGPT/ALT 91 U/L (13-61)
[2024-04-25 01:35] LABS: TOT PROT 5.8 g/dl (6.4-8.2)
[2024-04-25 01:36] LABS: BILIRUBIN,TOTAL 1.2 mg/dL (0.2-1)
[2024-04-25 01:37] LABS: ALK PHOS 76 U/L (45-117)
[2024-04-25 01:47] LABS: ALBUMIN 2.2 g/dl (3.4-5.0); BLOOD UREA NITROGEN 102.2 mg/dL (7-18); CREATININE 9.7 mg/dL (0.55-1.3)
[2024-04-25] MEDS ORDERED: ALBUTEROL SO4 2.5/IPRATROPIUM 0.5 INH SOL 3 ML VIAL.NEB. NEB ONE (04:21)
[2024-04-25] MEDS ORDERED: ALBUTEROL SO4 2.5/IPRATROPIUM 0.5 INH SOL 3 ML VIAL.NEB. NEB PRN (05:44)
[2024-04-25] MEDS: NOREPINEPHRINE BITARTRATE/D5W 8 MG/250 ML BAG IVPB SCH (06:51)
[2024-04-25 07:31] LABS: CHLORIDE 106 mmol/L (98-107); SODIUM 143 mmol/L (136-145)
[2024-04-25 07:34] LABS: ALBUMIN 2.1 g/dl (3.4-5.0); ANION GAP 15 mmol/L (4-13); CALCIUM 7.5 mg/dL (8.5-10.1); CO2 22 mmol/L (21-32); GLUCOSE,RANDOM 197 mg/dL (74-106)
[2024-04-25] MEDS ORDERED: NOREPINEPHRINE BITARTRATE 4 MG/4 ML ML IV ONE (07:35)
[2024-04-25 07:37] LABS: PHOSPHOROUS 5.5 mg/dL (2.5-4.9); SGOT/AST 153 U/L (15-37); SGPT/ALT 83 U/L (13-61)
[2024-04-25 07:39] LABS: BILIRUBIN,TOTAL 1.2 mg/dL (0.2-1); TOT PROT 5.8 g/dl (6.4-8.2)
[2024-04-25 07:40] LABS: ALK PHOS 76 U/L (45-117)
[2024-04-25 07:41] LABS: BLOOD UREA NITROGEN 110.6 mg/dL (7-18); CREATININE 10.2 mg/dL (0.55-1.3)
[2024-04-25 07:44] LABS: LACTIC ACID 2.1 mmol/L (0.4-2.0)
[2024-04-25] MEDS: MEROPENEM 1 GM in DEXTROSE 5%-WATER 100 ML IVPB SCH (09:51)
[2024-04-25] MEDS ORDERED: MEROPENEM 1 GM in DEXTROSE 5%-WATER 100 ML IVPB SCH (10:00)
[2024-04-25 10:10] LABS: HEMATOCRIT 36.1 % (32.4-45.2); HEMOGLOBIN 11.8 GM/dL (10.7-15.3); MCH 29.9 pg (25.7-33.7); MCHC 32.7 g/dl (32.0-36.0); MEAN CELL VOLUME 91.3 fl (80-96); MEAN PLT VOLUME 11.3 fl (7.5-11.1); PLATELET COUNT 95 10^3/uL (134-434); RBC 3.95 M/mm3 (3.60-5.2); RDW 16.2 % (11.6-15.6); WHITE BLOOD COUNT 10.6 K/mm3 (4.0-10.0)
[2024-04-25 10:27] LABS: HEMATOCRIT 35.5 % (32.4-45.2); HEMOGLOBIN 11.6 GM/dL (10.7-15.3); MCHC 32.7 g/dl (32.0-36.0); MEAN CELL VOLUME 91.7 fl (80-96); MEAN PLT VOLUME 11.5 fl (7.5-11.1); PLATELET COUNT 90 10^3/uL (134-434); RBC 3.87 M/mm3 (3.60-5.2); RDW 16.1 % (11.6-15.6); WHITE BLOOD COUNT 9.1 K/mm3 (4.0-10.0)
[2024-04-25] MEDS ORDERED: SODIUM CHLORIDE 250 ML IV PRN (11:22)
[2024-04-25 11:34] LABS: ANISOCYTOSIS 1+; MACROCYTOSIS 0
[2024-04-25] MEDS: SODIUM CHLORIDE 1,000 ML IV SCH (12:00)
[2024-04-25] MEDS ORDERED: LIDOCAINE HCL 1%, 10 MG/ML (50 mL VIAL) SQ ONE (15:19)
[2024-04-25] MEDS: VANCOMYCIN/WATER FOR INJ (PEG) 1,000 MG/200 ML BAG IVPB ONE (16:00)
[2024-04-25] MEDS: LIDOCAINE HCL 1%, 10 MG/ML (20ML VIAL) SQ ONE (17:54)
[2024-04-25] MEDS: ACETAMINOPHEN 1000 MG/100 ML BAG IVPB PRN (18:37)
[2024-04-25 18:59] LABS: POTASSIUM 3.8 mmol/L (3.5-5.1)
[2024-04-25 19:00] LABS: CALCIUM 7.6 mg/dL (8.5-10.1)
[2024-04-25 19:04] LABS: CREATININE 5.7 mg/dL (0.55-1.3)
[2024-04-25 19:05] LABS: BLOOD UREA NITROGEN 51.6 mg/dL (7-18)
[2024-04-26] MEDS: THROMBIN (RECOMBINANT) 5,000 UNIT VIAL TP ONE (06:31)
[2024-04-26 06:38] LABS: ARTERIAL BLD GAS O2 SATURATION 97.7 % (95-98); ARTERIAL BLOOD GAS PO2 101.3 mmHg (80-100); ARTERIAL BLOOD GAS pH 7.409 (7.350-7.450)
[2024-04-26 06:39] LABS: ALLENS TEST POSITIVE
[2024-04-26 06:51] LABS: BASO % 0.9 % (0-2.0); EOS % 0.3 % (0-4.5); HEMATOCRIT 31.1 % (32.4-45.2); MCH 29.4 pg (25.7-33.7); MEAN CELL VOLUME 91.9 fl (80-96); MONO % 5.2 % (3.8-10.2); NEUT % 78.6 % (42.8-82.8); PLATELET COUNT 93 10^3/uL (134-434); RBC 3.39 M/mm3 (3.60-5.2); WHITE BLOOD COUNT 11.7 K/mm3 (4.0-10.0)
[2024-04-26 06:57] LABS: POTASSIUM 3.8 mmol/L (3.5-5.1)
[2024-04-26 07:00] LABS: CALCIUM 7.6 mg/dL (8.5-10.1)
[2024-04-26 07:01] LABS: BLOOD UREA NITROGEN 65.4 mg/dL (7-18)
[2024-04-26 07:04] LABS: CREATININE 6.9 mg/dL (0.55-1.3); PHOSPHOROUS 5.6 mg/dL (2.5-4.9)
[2024-04-26 07:05] LABS: TOT PROT 5.6 g/dl (6.4-8.2)
[2024-04-26 07:06] LABS: BILIRUBIN,TOTAL 1.3 mg/dL (0.2-1)
[2024-04-26] MEDS: MEROPENEM 1 GM in DEXTROSE 5%-WATER 100 ML IVPB SCH (10:45)
[2024-04-26 15:09] VITALS: BMI 20.6
[2024-04-26] MEDS ORDERED: SODIUM CHLORIDE 250 ML IV PRN (16:20)
[2024-04-27 06:57] LABS: HEMOGLOBIN 9.8 GM/dL (10.7-15.3); MCH 29.8 pg (25.7-33.7); MCHC 32.5 g/dl (32.0-36.0); MEAN CELL VOLUME 91.6 fl (80-96); MEAN PLT VOLUME 10.9 fl (7.5-11.1); PLATELET COUNT 105 10^3/uL (134-434); RBC 3.28 M/mm3 (3.60-5.2)
[2024-04-27 07:15] LABS: CHLORIDE 105 mmol/L (98-107); SODIUM 143 mmol/L (136-145)
[2024-04-27 07:32] LABS: ALBUMIN 1.9 g/dl (3.4-5.0); ALK PHOS 135 U/L (45-117); ANION GAP 12 mmol/L (4-13); BILIRUBIN,TOTAL 0.7 mg/dL (0.2-1); BLOOD UREA NITROGEN 93.6 mg/dL (7-18); CALCIUM 7.9 mg/dL (8.5-10.1); CO2 26 mmol/L (21-32); CREATININE 8.5 mg/dL (0.55-1.3); GLUCOSE,RANDOM 164 mg/dL (74-106); MAGNESIUM 2.3 mg/dL (1.8-2.4); PHOSPHOROUS 6.2 mg/dL (2.5-4.9); SGOT/AST 148 U/L (15-37); SGPT/ALT 74 U/L (13-61); TOT PROT 5.6 g/dl (6.4-8.2)
[2024-04-27 08:44] LABS: ANISOCYTOSIS 0; MACROCYTOSIS 0
[2024-04-27] MEDS: ALBUMIN HUMAN 25% 12.5 GM/50 ML VIAL IV SCH (09:10)
[2024-04-27] MEDS: EPOETIN ALFA-EPBX 4,000 UNIT/ML VIAL IVPUSH ONE (09:40)
[2024-04-27] MEDS: AMINO ACIDS 4.25%/D5W 1,000 ML IV SCH (11:11)
[2024-04-27] MEDS: MIDODRINE HCL 5 MG TABLET PO SCH (13:09)
[2024-04-28 01:59] LABS: HEMOGLOBIN 8.2 GM/dL (10.7-15.3); MCHC 31.4 g/dl (32.0-36.0); MEAN CELL VOLUME 92.3 fl (80-96); MEAN PLT VOLUME 10.6 fl (7.5-11.1); PLATELET COUNT 130 10^3/uL (134-434); RBC 2.82 M/mm3 (3.60-5.2); RDW 16.2 % (11.6-15.6)
[2024-04-28] MEDS ORDERED: VASopressin 20 UNITS/ML VIAL IV ONE ×2 (06:10→06:17)
[2024-04-28] MEDS: VASopressin 40 UNITS/100 ML BAG IV SCH (06:53)
[2024-04-28] MEDS: PANTOPRAZOLE SODIUM 40 MG VIAL IVPUSH SCH (07:37)
[2024-04-28 08:25] LABS: HEMATOCRIT 22.8 % (32.4-45.2); MCH 28.8 pg (25.7-33.7); MEAN CELL VOLUME 96.2 fl (80-96); MEAN PLT VOLUME 11.2 fl (7.5-11.1); PLATELET COUNT 163 10^3/uL (134-434); RBC 2.37 M/mm3 (3.60-5.2); RDW 16.8 % (11.6-15.6); WHITE BLOOD COUNT 29.4 K/mm3 (4.0-10.0)
[2024-04-28 08:40] LABS: HEMOGLOBIN 6.8 GM/dL (10.7-15.3)
[2024-04-28 08:44] LABS: ALBUMIN 2.1 g/dl (3.4-5.0); BILIRUBIN,TOTAL 0.8 mg/dL (0.2-1); BLOOD UREA NITROGEN 66.3 mg/dL (7-18); CALCIUM 7.8 mg/dL (8.5-10.1); CREATININE 5.7 mg/dL (0.55-1.3); POTASSIUM 4.8 mmol/L (3.5-5.1); TOT PROT 5.4 g/dl (6.4-8.2)
[2024-04-28] MEDS ORDERED: PHENYLEPHRINE HCL 10 MG/1 ML SINGLE DOSE VIAL ONE (09:00)
[2024-04-28] MEDS: PHENYLEPHRINE HCL 50,000 MCG in SODIUM CHLORIDE 500 ML IV SCH (09:15)
[2024-04-28] MEDS ORDERED: HYDROCORTISONE SOD SUCCINATE 100 MG/2 ML VIAL IVPUSH SCH (09:15)
[2024-04-28] MEDS ORDERED: PANTOPRAZOLE SODIUM 160 MG in SODIUM CHLORIDE 290 ML IVPB SCH (09:15)
[2024-04-28 09:23] LABS: ANISOCYTOSIS 1+; MACROCYTOSIS 0
[2024-04-28] MEDS ORDERED: DOPAMINE 400 MG/D5W - 400,000 MCG/250 ML INFUS.BAG IVPB ONE (09:34)
[2024-04-28] MEDS ORDERED: CALCIUM CHLORIDE 1 GM/10 ML *DISP.SYRIN ONE (09:41)
[2024-04-28] MEDS ORDERED: VANCOMYCIN/WATER FOR INJ (PEG) 1,000 MG/200 ML BAG IVPB SCH ×2 (10:00)
[2024-04-28] MEDS ORDERED: FLUDROCORTISONE ACETATE 0.1 MG TABLET (FP) NGT SCH (10:00)
[2024-04-28 11:07] VITALS: BP 56/32; PULSE 101
[2024-04-28 11:09] LABS: MAGNESIUM 2.3 mg/dL (1.8-2.4); PHOSPHOROUS 6.2 mg/dL (2.5-4.9)
[2024-04-28 11:21] VITALS: RESP 14; TEMP 97.6
== END 2024-04-28 09:50 | disposition expired | DRG 871 ==
LOC: JER 01:10 → JERBED 03:54 → JICU 16:14
PROVIDERS: ADMIT Internal Medicine; ATTEND Internal Medicine Pulmonary Disease
PROC: 5A1D70Z Performance of Urinary Filtration, Intermittent, Less than 6 Hours Per Day (ICD-10-PCS; 2024-04-24)
PROC: 05PYX3Z Removal of Infusion Device from Upper Vein, External Approach (ICD-10-PCS; 2024-04-25)
PROC: 05HN33Z Insertion of Infusion Device into Left Internal Jugular Vein, Percutaneous Approach (ICD-10-PCS; 2024-04-25)
PROC: B544ZZA Ultrasonography of Left Jugular Veins, Guidance (ICD-10-PCS; 2024-04-25)
PROC: 05HF33Z Insertion of Infusion Device into Left Cephalic Vein, Percutaneous Approach (ICD-10-PCS; 2024-04-25)
PROC: 5A1935Z Respiratory Ventilation, Less than 24 Consecutive Hours (ICD-10-PCS; 2024-04-27)
PROC: 0BH17EZ Insertion of Endotracheal Airway into Trachea, Via Natural or Artificial Opening (ICD-10-PCS; 2024-04-27)
PROC: 05HY33Z Insertion of Infusion Device into Upper Vein, Percutaneous Approach (ICD-10-PCS; principal; 2024-04-28)
PROC: 30233N1 Transfusion of Nonautologous Red Blood Cells into Peripheral Vein, Percutaneous Approach (ICD-10-PCS; 2024-04-28)
DX: A41.02 Sepsis due to Methicillin resistant Staphylococcus aureus (principal); G92.8 Other toxic encephalopathy; J96.01 Acute respiratory failure with hypoxia; N18.6 End stage renal disease; R65.21 Severe sepsis with septic shock; I12.0 Hypertensive chronic kidney disease with stage 5 chronic kidney disease or end stage renal disease; N39.0 Urinary tract infection, site not specified; I24.89 Other forms of acute ischemic heart disease; E87.20 Acidosis, unspecified; K92.2 Gastrointestinal hemorrhage, unspecified; F03.90 Unspecified dementia, unspecified severity, without behavioral disturbance, psychotic disturbance, mood disturbance, and anxiety; E78.5 Hyperlipidemia, unspecified; Z85.038 Personal history of other malignant neoplasm of large intestine; R74.01 Elevation of levels of liver transaminase levels; E87.5 Hyperkalemia; E83.39 Other disorders of phosphorus metabolism; Z99.2 Dependence on renal dialysis; D69.6 Thrombocytopenia, unspecified; D64.9 Anemia, unspecified; I46.9 Cardiac arrest, cause unspecified; E11.40 Type 2 diabetes mellitus with diabetic neuropathy, unspecified
CPT/HCPCS: 0241U-QW; 36415; 36600; 71045-TC-FY; 74176-TC; 80048; 80053; 81003; 82803; 82962; 83605; 83735; 83880; 84100; 84484; 85025; 85027; 85610; 85730; 86704; 86705; 86803; 86850; 86900; 86901; 86922; 87040; 87086; 87186; 87324; 87340; 87449; 87517; 93005; 93010; 93306-TC; 99291; G0480; J0131; J1644; J3490; P9047; P9058; Q5106